=== PATIENT | female | born 1985 | race Caucasian/White ===

== ENCOUNTER → 2017-11-12 10:32 | Outpatient (CLI) | payer OTHER, MEDICAID, SELFPAY ==
[2017-11-12 11:27] LABS: Glucose 98 mg/dL (70-100)
[2017-11-12 11:29] LABS: Add Manual Diff / Slide Review NO; Basophils Percent Auto 0.6 % (0-2); Eosinophils Percent Auto 2.7 % (2-4); Hematocrit 40.5 % (36-46); Hemoglobin 13.6 g/dL (12.0-16.0); Lymphocytes Percent Auto 29.9 % (25-40); Mean Corpuscular HGB Conc 33.5 % (30-36); Mean Corpuscular Hemoglobin 28.6 PG (26-34); Mean Corpuscular Volume 85.6 fL (80-100); Monocytes Percent Auto 11.4 % (3-14); Neutrophils Absolute Auto 3100 /uL (3000-5900); Neutrophils Percent Auto 55.4 % (50-75); Platelet Count 213 X10^3/uL (150-400); Red Blood Cell Count 4.73 X10^6/uL (4.0-5.2); Red Cell Distribution Width 13.6 % (11.6-14.8); White Blood Cell Count 5.6 X10^3/uL (4.5-11.0)
[2017-11-12 12:25] LABS: TSH w/ Reflex to FT4 2.37 uIU/mL (0.47-4.68)
== END ==
PROVIDERS: PCP Family Medicine; Visit Provider Family Medicine
DX: R53.82 Chronic fatigue, unspecified (principal); E66.9 Obesity, unspecified
CPT/HCPCS: 36415; 82947; 84443; 85025

== ENCOUNTER → 2017-12-08 14:07 | Outpatient (CLI) | payer OTHER, MEDICAID, SELFPAY | PROVIDERS: PCP Family Medicine; Visit Provider Nurse Practitioner Family | DX: J02.9 Acute pharyngitis, unspecified (principal); J35.1 Hypertrophy of tonsils | CPT/HCPCS: 87070 ==

== ENCOUNTER → 2017-12-08 14:25 | Outpatient (CLI) | payer OTHER, MEDICAID, SELFPAY ==
[2017-12-10 14:09] LABS: EBV Virus IgM Ab < 36.00 U/mL (< 36.00)
== END ==
PROVIDERS: PCP Family Medicine; Visit Provider Nurse Practitioner Family
DX: J02.9 Acute pharyngitis, unspecified (principal)
CPT/HCPCS: 36415; 86663; 86664; 86665; 87070; 87077

== ENCOUNTER → 2018-01-05 11:17 | Outpatient (CLI) | payer OTHER, MEDICAID, SELFPAY ==
--- NOTE | 2018-01-05 11:18 | DI.US.S_ITS ---
PROCEDURE: US PELVIC COMPLETE INDICATIONS: DYSMENORRHEA TECHNIQUE: Real-time scanning was performed of the pelvic organs, with image documentation. Additional endovaginal scanning was necessary due to incomplete visualization of the adnexal and endometrial structures by transabdominal scanning. COMPARISON: None. FINDINGS: Transabdominal scanning: Limited scanning through the kidneys shows no hydronephrosis. No pathologic free abdominal or pelvic fluid. Endovaginal scanning: Uterus: Uterus is normal in size at 5.1 x 5.3 x 1.1 cm, anteverted. The endometrium measures 9.0 mm in combined thickness. Ovaries: The right ovary measures 2.9 x 2.7 x 3.9 cm and contains a mildly complex cyst containing internal low level echoes raising up to 1.6 x 1.5 x 1.0 cm but no internal or abnormal marginal vascularity is associated. The left ovary measures 3.1 x 2.4 x 1.9 cm and contains a single 1.4 cm follicle. IMPRESSION: Normal appearing anteverted uterus, small 1.6 cm mildly complex right ovarian cyst containing low-level internal echoes. Simple follicular cyst on the left measures 1.4 cm. No adjacent abnormal mass or free fluid is seen. Dictated by: Wade Madsen M.D. on 01/05/2018 at 12:36 Approved by: Wade Madsen M.D. on 01/05/2018 at 12:38
== END ==
PROVIDERS: PCP Family Medicine; Visit Provider Physician Assistant
DX: N94.6 Dysmenorrhea, unspecified (principal); N83.02 Follicular cyst of left ovary; N83.291 Other ovarian cyst, right side
CPT/HCPCS: 76830; 76856

== ENCOUNTER → 2022-11-20 16:20 | Outpatient (CLI) | payer OTHER, MEDICAID, SELFPAY ==
[2022-11-20 17:31] LABS: Hemoglobin A1C% w Est Avg Glu 5.3 % (4.0-6.0)
[2022-11-20 18:04] LABS: TSH w/ Reflex to FT4 2.85 uIU/mL (0.47-4.68)
== END ==
PROVIDERS: PCP Family Medicine; Referring Provider Family Medicine; Visit Provider Family Medicine
DX: E66.9 Obesity, unspecified (principal)
CPT/HCPCS: 36415; 83036; 84443

== ENCOUNTER → 2023-04-03 10:39 | Outpatient (CLI) | payer OTHER, MEDICAID, SELFPAY ==
[2023-04-03 11:27] LABS: Influenza A - CEPHEID Flu A NEGATIVE (NEGATIVE); Influenza B - CEPHEID Flu B NEGATIVE (NEGATIVE); Respiratory Syncytial Virus Negative (Negative)
[2023-04-03 13:09] LABS: COVID-19 CEPHEID 4-PLEX PCR Negative (Negative)
== END ==
PROVIDERS: PCP Family Medicine; Visit Provider Physician Assistant
DX: R05.1 Acute cough (principal)
CPT/HCPCS: 0241U; 87880

== ENCOUNTER → 2023-11-28 09:52 | Outpatient (CLI) | payer OTHER, SELFPAY ==
[2023-11-28 12:36] LABS: Add Manual Diff / Slide Review NO; Basophils Absolute Auto 0 /uL (0-100); Basophils Percent Auto 0.3 % (0-2); Eosinophils Absolute Auto 100 /uL (0-450); Eosinophils Percent Auto 1.8 % (2-4); Hematocrit 38.6 % (36-46); Hemoglobin 12.9 g/dL (12.0-16.0); Lymphocytes Absolute Auto 1800 /uL (1100-4500); Lymphocytes Percent Auto 22.7 % (25-40); Mean Corpuscular HGB Conc 33.4 % (30-36); Mean Corpuscular Hemoglobin 28.3 PG (26-34); Mean Corpuscular Volume 84.8 fL (80-100); Monocytes Absolute Auto 700 /uL (0-900); Monocytes Percent Auto 8.5 % (3-14); Neutrophils Absolute Auto 5200 /uL (1500-7000); Neutrophils Percent Auto 66.7 % (50-75); Platelet Count 266 X10^3/uL (150-400); Red Blood Cell Count 4.56 X10^6/uL (4.0-5.2); Red Cell Distribution Width 14.7 % (11.6-14.8); White Blood Cell Count 7.7 X10^3/uL (4.5-11.0)
[2023-11-28 13:13] LABS: Alanine Aminotransferase 23 IU/L (<35); Albumin 4.2 g/dL (3.5-5.0); Albumin Globulin Ratio 1.2 (1.0-2.8); Alkaline Phosphatase 65 U/L (38-126); Aspartate Aminotransferase 23 IU/L (14-36); BUN Creatinine Ratio 12.1 (6-22); Bilirubin Total 0.5 mg/dL (0.2-1.3); Blood Urea Nitrogen 12 mg/dL (7-17); Calcium 9.5 mg/dL (8.4-10.2); Carbon Dioxide 23 mmol/L (22-32); Chloride 104 mmol/L (98-107); Cholesterol 199 mg/dL (140-199); Estimated Glomerular Filt Rate > 60 mL/min (>60); Globulin 3.6 g/dL (1.7-4.1); Glucose 101 mg/dL (70-100); HDL Cholesterol 36 mg/dL (40-60); HEMOLYSIS < 15 (0-50); LDL Cholesterol Calculated 144 mg/dL (<100); Potassium 3.9 mmol/L (3.4-5.1); Sodium 136 mmol/L (137-145); Total Protein 7.8 g/dL (6.3-8.2); Triglycerides 93 mg/dL (35-150)
[2023-11-28 16:03] LABS: Thyroid Stimulating Hormone 2.75 uIU/mL (0.47-4.68)
[2023-11-28 16:10] LABS: Hemoglobin A1C% w Est Avg Glu 5.7 % (4.0-6.0)
[2023-11-29 08:39] LABS: Insulin Level Total 36.4 uIU/mL (2.6-24.9)
== END ==
PROVIDERS: PCP Family Medicine; Referring Provider Family Medicine; Visit Provider Family Medicine
DX: E66.9 Obesity, unspecified (principal)
CPT/HCPCS: 36415; 80053; 80061; 83036; 83525; 84402; 84403; 84443; 85025

== ENCOUNTER → 2023-12-24 08:05 | Outpatient (CLI) | payer OTHER, SELFPAY ==
--- NOTE | 2023-12-24 08:07 | DI.US.S_ITS ---
PROCEDURE: US PELVIC COMPLETE INDICATIONS: f/u ovaian cyst TECHNIQUE: Real-time scanning was performed of the pelvic organs, with image documentation. Additional endovaginal scanning was necessary due to incomplete visualization of the adnexal and endometrial structures by transabdominal scanning. COMPARISON: Outside Facility, US, US PELVIC COMPLETE, 11/07/2023, 18:16. FINDINGS: Uterus: Uterus is anteverted and normal in size at 12.0 x 5.9 x 6.9 cm. The myometrium is homogeneous. The endometrium measures 11.2 mm combined thickness. Ovaries: The right ovary measures 4.6 x 2.4 x 2.5 cm, with a calculated ovarian volume of 14.2 cc. The left ovary measures 1.5 x 2.0 x 2.2 cm, with a calculated ovarian volume of 3.5 cc. Adjacent to the right ovary is a cystic lesion with low-level internal echoes measuring 5.7 x 2.8 x 4.8 centimeters, previously 5.0 x 2.8 x 3.2. Less than 12 follicles can be seen in each ovary. No adnexal masses are seen. Other: No pathologic free abdominal or pelvic fluid. IMPRESSION: Cystic structure with low-level internal echoes adjacent to the right ovary appears mildly increased in size compared to prior. Findings may represent endometrioma given persistence and clinical correlation is recommended. We strive to produce accurate, complete, and clear reports of imaging services. To assist us in improving patient care, this report was composed using standard report templates and voice recognition software. Therefore, it may contain abnormal punctuation, insertions and/or omissions. Occasional wrong-word or sound-alike substitutions may occur. Though we review the report and make efforts to correct it, we do recommend that the report be read carefully in proper context to recognize any text inaccuracies. Dictated by: José Miguel Marquez M.D. on 12/24/2023 at 16:50 Approved by: José Miguel Marquez M.D. on 12/24/2023 at 16:52
== END ==
PROVIDERS: PCP Family Medicine; Referring Provider Family Medicine; Visit Provider Family Medicine
DX: N83.209 Unspecified ovarian cyst, unspecified side (principal)
CPT/HCPCS: 76856

== ENCOUNTER → 2024-01-16 14:31 | Outpatient (CLI) | payer OTHER, SELFPAY ==
[2024-01-16 16:28] LABS: Cancer Antigen 125 20.5 U/mL (0-35)
== END ==
PROVIDERS: PCP Family Medicine; Referring Provider Family Medicine; Visit Provider Family Medicine
DX: N83.209 Unspecified ovarian cyst, unspecified side (principal)
CPT/HCPCS: 36415; 86304

== ENCOUNTER 2024-04-26 06:30 | Day surgery (SDC) | payer OTHER, SELFPAY ==
[2024-03-16 14:22] VITALS: BMI 48.5
[2024-04-26] VITALS (9 sets, daily range): BP systolic 104–127; BP diastolic 66–84; PULSE 68–107; RESP 11–17; TEMP 36.1–37.2; O2SAT 93–99; BMI 48.4
--- NOTE | 2024-04-26 | PATH_ITS ---
[facility] Accession Number: [id number] No. of containers..01 Tissue . 01 Material submitted: . fallopian tube - BILATERAL FALLOPIAN TUBES, RIGHT OVARIAN CYST . 01 Diagnosis: BILATERAL FALLOPIAN TUBES AND RIGHT OVARIAN CYST, BILATERAL SALPINGECTOMY AND RIGHT OVARIAN CYSTECTOMY: Endometriotic cyst and bilateral fimbriated fallopian tubes with focal superficial involvement by endometriosis. Negative for malignancy. MRV 04/28/2024 1601 Local . 01 Electronically signed: . Carlee Cabrera DO, Pathologist NPI- [id number] . 01 Gross description: . Received in formalin with two patient identifiers and bilateral fallopian tubes, right ovarian cyst, are two unoriented, fimbriated fallopian tubes, 5.5 x 1.2 cm and 4.3 x 1.0 cm, as well as multiple fragments of membranous tissue consistent with fragmented cyst aggregating to 5.4 x 5.2 x 1.3 cm. . Both tubes have violaceous, smooth serosa with cysts up to 0.4 cm in greatest dimension filled with cloudy serous fluid. The lumen are stellate and unremarkable. . The fragments of cysts are thin and translucent with no distinct areas of thickening or excrescences identified. No normal ovarian parenchyma is identified. . Craft Manager sections are submitted as follows: A1: Longer fallopian tube to include one-half of bisected fimbriae and cross sections. A2: Sharon fallopian tube to include one-half of bisected fimbriae and cross sections. A3-A7: Cyst. ([id number]) /MRV 04/27/2024 1642 Local . 01 Pathologist provided ICD-10: N80.129 . 01 CPT . 001110 Specimen Comment: A courtesy copy of this report has been sent to [facility] Pathology Performed at: [address] [address] [address] [address], [place], [place] [id number] MD Ky Bryant MD Phone: [phone]
--- NOTE | 2024-04-26 07:11 | PM.GYNHP.1 ---
History of Present Illness History of Present Illness Narrative: Cee Herzog is a 38 year old female who presents for scheduled procedure in setting of known ROV neoplasm consistent with dermoid, chronic AUB, NICOLAS, stage 2 POP. Patient last seen in office for preoperative counseling 03/02/24, denies significant interval changes in personal or family history and affirms desire to proceed today with procedure as scheduled [facility] Medical History (Updated 03/02/24 @ 11:18 by Deidra Calixto MD) Abnormal uterine bleeding (AUB) Mixed stress and urge urinary incontinence Vision disorder Rosacea (~2000) Eczema Acne Carpal tunnel syndrome (~2009) Ankle pain (~2000) Chicken pox (~1990) Family History Father Hypertension Stroke Mother Diabetes mellitus Rheumatoid arthritis Sleep apnea Family history of thyroid problem Sister Family history of thyroid problem Sister Family history of thyroid problem Grandfather Diabetes mellitus Hyperlipidemia Grandmother Stomach cancer Lung cancer Grandfather Stroke Prostate cancer Grandmother Skin cancer Hypertension Social History marital status: number of children: 4 household members: family and children lives independently: Yes caregiver/support person: No housing: house occupational status: unemployed Smoking Status: Never smoker alcohol intake: never substance use type: does not use Meds Home Medications and Allergies Home Medications Medication Instructions Recorded Confirmed Type fluticasone propionate 50 1 spray intranasal DAILY #16 grams 04/03/23 04/26/24 Rx mcg/actuation nasal spray,suspension (Flonase Allergy Relief) Allergies Allergy/AdvReac Type Severity Reaction Status Date / Time No Known Drug Allergies Allergy Verified 04/26/24 06:45 Review of Systems Review of Systems ROS: Yes All systems reviewed with the patient and are negative except as otherwise documented Exam Const General: cooperative and comfortable Nutritional Appearance: obese Orientation: alert, awake and oriented x3 Limitations: mental status not altered Resp Effort & Inspection: normal respiratory effort and able to speak in complete sentences GI Inspection: large pannus Extrem General: normal to inspection Psych Mental Status: mental status grossly normal Judgment: judgment good Assessment & Plan Assessment and plan (1) Abnormal uterine bleeding (AUB): Status: Acute (2) Mixed stress and urge urinary incontinence: Status: Acute (3) Cyst of ovary: Problem details: Right side 5.7 x 2.8 x 4.8 likely endometrioma Qualifiers: Laterality: right Qualified Code(s): N83.201 - Unspecified ovarian cyst, right side Status: Acute Plan 38yo presents for scheduled procedure, definitive surgical management of acute on chronic AUB, known ROV neoplasm, chronic NICOLAS, stage 2 POP. Patient affirms understanding that hysterectomy portion of the case will only be performed if there are no intraoperative safety concerns for completion. She verbalized understanding that the laparoscopic portion of the procedure may be unsuccessful if there is difficulty with ventilation in setting of advanced BMI with higher likelihood of conversion to open procedure. Patient verbalized understanding of increased risk of urinary retention with placement of mid-urethral sling, planned overnight admission to facility for observation pending extent of procedure performed. dispo: to OR Time-Based Coding :: [TOTAL MINUTES] spent with patient and on the chart (including review of chart, obtaining history, exam, reviewing outside data, placing orders, documenting exam and treatment plan, and counseling patient) on [DATE].
[2024-04-26] MEDS: SCOPOLAMINE 1 PATCH TOP (07:12)
[2024-04-26] MEDS: LACTATED RINGERS 1,000 ML 42 ML IV ×2 (07:12→08:41)
[2024-04-26] MEDS: ACETAMINOPHEN 325 MG TABLET 975 MG PO (07:15)
--- NOTE | 2024-04-26 07:15 | PM.PREOP ---
Pre-operative Note Interval Note History & Physical reviewed/Exam performed by Physician: Yes Changes to H&P: No H&P completed within 30 days and has changed as indicated here:: 04/26/24 ASA Class (for procedural sedation): III
[2024-04-26 07:45] LABS: Add Manual Diff / Slide Review NO; Basophils Absolute Auto 100 /uL (0-100); Basophils Percent Auto 0.8 % (0-2); Eosinophils Absolute Auto 200 /uL (0-450); Eosinophils Percent Auto 3.1 % (2-4); Hematocrit 35.9 % (36-46); Lymphocytes Absolute Auto 2000 /uL (1100-4500); Lymphocytes Percent Auto 25.8 % (25-40); Mean Corpuscular HGB Conc 33.4 % (30-36); Mean Corpuscular Hemoglobin 27.9 PG (26-34); Mean Corpuscular Volume 83.4 fL (80-100); Monocytes Absolute Auto 600 /uL (0-900); Monocytes Percent Auto 7.1 % (3-14); Neutrophils Absolute Auto 5000 /uL (1500-7000); Neutrophils Percent Auto 63.2 % (50-75); Platelet Count 231 X10^3/uL (150-400); Red Blood Cell Count 4.31 X10^6/uL (4.0-5.2); Red Cell Distribution Width 14.3 % (11.6-14.8); White Blood Cell Count 7.8 X10^3/uL (4.5-11.0)
[2024-04-26] MEDS: CEFAZOLIN VIAL 3 GM in SODIUM CHLORIDE 0.9% 100 ML IV (08:00)
--- NOTE | 2024-04-26 08:47 | SUR.OPER ---
Lithotomy on padded OR bed. [place] Pad Positioner under torso. Head on pillow, arms padded and tucked at sides. Legs secured in padded yellow fins stirrups.
[2024-04-26] MEDS: BUPIVACAINE 0.5% W/ EPI (PF) 30 ML VIAL INJ (08:57)
[2024-04-26] MEDS: BUPIVACAINE 0.25% W/ EPI 30 ML VIAL INJ (08:59)
--- NOTE | 2024-04-26 09:45 | PM.OP.1 ---
Operative Date/Time/Diagnoses Date of procedure: 04/26/24 Time of procedure: 07:45 Pre-op diagnosis: ROV neoplasm, AUB, NICOLAS Post-op diagnosis: same Procedure & Clinicians Procedure: diagnostic laparoscopy, R ovarian cystectomy, bilateral salpingectomy Same procedure as scheduled: No (planned laparoscopic hysterectomy, A/P repair and MUS with TVT omitted ) Indications: chronic symptomatic ROV cyst, AUB, NICOLAS Surgeon: Deidra Calixto Fishing Game Warden: Mora Nagel Click Yes if Unassisted: No Anesthesia Type: General Operative Notes Findings: normal external female genitalia, perineum and anus without rash or lesion severe broad based posterior vaginal wall defect minimal anterior wall defect, moderate urethral hypermobility noted marked palpable intra-abdominal pressure on anterior vaginal wall in lithotomy/under general anesthesia, 2 provider decision to not proceed with pelvic repair as scheduled due to increased risk of failed procedure in setting of advanced BMI/patient habitus diagnostic laparoscopy with limited visualization secondary to pt intolerance to bariatric abdominal insufflation pressure, grossly normal appearing liver edge/gall bladder/appendix. Enlarged/dilated R ovarian cyst with hemorrhagic contents, normal appearing ovarian stroma. L fallopian tube and ovary grossly wnl. Reactive adhesions of enlarged hemorrhagic cyst to large bowel, bluntly dissected Closure Type: primary Specimen(s): other (bilateral fallopian tubes, R ovarian cyst ) Estimated Blood Loss (mL): 10 Blood products transfused: none Procedure in detail: The patient was taken to the operating room, placed on the operating table in the supine position and intubated with ETT.? The patient was then placed in the lithotomy position with her legs in Moris stirrups.? The patient was then examined under anesthesia with the above findings, then prepped and draped in a sterile fashion.? A samaniego catheter was placed.? Time out was performed. A sterile speculum was inserted into the vagina.? The anterior cervix was grasped with single tooth tenaculum and under gentle traction the uterus sounded to 8cm. The cervical os was serially dilated to 17f using Carlo dilators. The medium VCare manipulator was placed in the standard fashion and the balloon was inflated.? Attention was then turned to the abdominal portion of the case. A 5mm incision was made infraumbilically and abdominal entry was achieved under direct visualization using the 5mm extended length VisaPort trocar.? Abdomen was insufflated to 20mmHg.? Two lateral 5-mm ports were placed in a similar manner under direct visualization.? The patient was placed in steep trendelenburg and the uterus was anteverted and abdominal survey was noted with findings as noted above. Surgeons notified by anesthesia at that time of increased difficulty with ventilation; patient was returned to supine position and pneumoperitoneum was decreased from bariatric pressure to standard pressure setting 13-15mmHg. With confirmed adequate ventilation per anesthesia without concern for patient safety the patient was replaced in modified trendelenburg position. Visualization of gynecologic anatomy was still suboptimal secondary to patient habitus and decision made to omit laparoscopic hysterectomy portion of case due to increased risk of iatrogenic injury. The Powerseal was used to dissect bilateral fallopian tubes away from the mesosalpinx.? Both fallopian tubes were amputated at the level of cornua and removed via the lateral 5mm trocar under direct visualization. The R ovarian cyst ruptured spontaneous with manipulation. Hemorrhagic contents were evacuated using the suction grain merchandising manager under direct visualization. The R ovarian cyst was sharply dissected away from the underlying normal ovarian stroma. The cyst wall was grasped using the atraumatic grasper and removed via the lateral trocar under direct visualization.? The abdomen was irrigated and all fluid was suction evacuated under direct visualization. All wound beds were visualized once more and noted to be hemostatic. The lateral trocars were removed under direct visualization. Pneumoperitoneum was released and the infraumbilical trocar was removed. The skin of all incisions was closed using 4-0 monocryl in a subcuticular fashion followed by application of dermabond. Attention was then returned to vaginal portion of the case. Given profundity of intra-abdominal pressure secondary to patient habitus, significant provider concern for failed incontinence procedure. Two provider decision (Shona, Durga) to omit pelvic repair portion of case due to increased risk of post-surgical failure with need for re-operation. All instruments were removed from the vagina and the samaniego was discontinued. All counts correct x2. The patient was awoken from anesthesia, extubated and taken to PACU in stable conditions. Complications: other (pelvic floor repair portion of scheduled procedure omitted, 2 provider decision ) Post-operative Condition: stable Disposition: PACU Plan for aftercare: dc to home pending clinical course, routine f/u in office, planned future referral to urogynecology
[2024-04-26] MEDS: OXYCODONE IR 5 MG TABLET PO (10:24)
[2024-04-26] MEDS: hydrOXYzine 50 MG/ML INJ 25 MG IM (10:25)
[2024-04-26] MEDS: ONDANSETRON 4 MG/2 ML INJ IV (10:42)
--- NOTE | 2024-04-26 12:05 | SUR.PHASEII ---
Patient urinated 100ml urine into hat and ambulated to restroom and back to bed without difficulty. Pt with some nausea now subsided after zofran administration and gingerale to drink
== END 2024-04-26 12:06 | disposition home or self-care (01) ==
LOC: OR 06:32 → AC 06:35
PROVIDERS: PCP Family Medicine; Referring Provider Obstetrics & Gynecology; Visit Provider Obstetrics & Gynecology
PROC: 0UT9FZZ Resection of Uterus, Via Natural or Artificial Opening With Percutaneous Endoscopic Assistance (ICD-10-PCS; CPT 58662; principal; 2024-04-26 07:45)
DX: N80.213 Superficial endometriosis of bilateral fallopian tubes (principal); N93.9 Abnormal uterine and vaginal bleeding, unspecified; N39.46 Mixed incontinence; N83.201 Unspecified ovarian cyst, right side; E66.9 Obesity, unspecified; Z68.42 Body mass index [BMI] 45.0-49.9, adult
CPT/HCPCS: 58662; 58661; 36415; 82962; 85025; 86850; 86900; 86901; J0330; J0690; J1100; J1171; J1885; J2250; J2405; J2704; J3010; J3410; J3490

== ENCOUNTER → 2024-05-27 14:20 | Outpatient (CLI) | payer OTHER, SELFPAY ==
[2024-05-27 20:08] LABS: Appearance Urine UA CLEAR; Bilirubin Urine UA NEGATIVE (NEGATIVE); Color Urine UA YELLOW; Glucose Urine UA NEGATIVE (Negative); Ketones Urine UA TRACE (NEGATIVE); Leukocyte Esterase Urine UA NEGATIVE (NEGATIVE); Nitrite Urine UA NEGATIVE (Negative); Occult Blood Urine UA NEGATIVE (Negative); Protein Urine UA NEGATIVE (Negative); Specific Gravity Urine UA >=1.030 (1.000-1.035); Urobilinogen Urine UA 0.2 E.U./dL (0.2)
[2024-05-27 20:17] LABS: pH Urine UA 5.5 (4.5-8.0)
[2024-05-27 20:33] LABS: Amorphous Sediment Urine 4+; Bacteria Urine Few (2-10); Culture Indicated Urine Cult Not Indicated; RBC Urine None Seen (0-5/HPF); Squamous Epithelial Cell Urine 0-1 /HPF (0-5/HPF); Urine Volume Low Vol <10mL (spun); WBC Urine None Seen (0-5/HPF)
== END ==
PROVIDERS: PCP Family Medicine; Visit Provider Obstetrics & Gynecology Gynecology
DX: N39.46 Mixed incontinence (principal)
CPT/HCPCS: 81001

== ENCOUNTER 2024-08-30 12:00 | Day surgery (SDC) | payer OTHER, SELFPAY ==
--- NOTE | 2024-08-03 09:36 | P.HPOB_ITS ---
History of Present Illness History of Present Illness Narrative: Cee Herzog is a 39 year old female admitted for surgery for POP and NICOLAS. Date of procedure:?? August 30, 2024 Preoperative diagnosis:? cystocele rectocele NICOLAS urge UI / Detrusor instability BMI 47 Planned Procedure:?? cysto / A&P / sling / cysto Of note, 1. start with cystoscopy, to make sure her anatomy is normal, given difficulty placing the UDS catheter. 2. do the sling and Ant repair via combined incision and combined dissection. 3. she specifically wants a not too tight rectocele repair, as she reports her spouse is quite large. Does not want the introitus narrowed anymore than is necessary to accomplish the rectocele repair Pain management plan as Tylenol 1000 mg t.i.d., Motrin 400 mg t.i.d., oxycodone 5 mg, 1 pill every 4 hours as needed, 15 pills ordered, colace For the urge incontinence, we will start treatment now with oxybutynin XL 10 mg a day. Take through surgery on August 30. Then stop at surgery for 2-3 weeks. After 2-3 weeks from surgery, restart the oxybutynin. At the 6 week visit, assess again. CC: Urinary incontinence HPI:??38-year-old female who presents for evaluation of above complaint.?? She reports onset of symptoms years ago.?? She considers this a? Moderate? problem. She reports severe urinary stress incontinence with cough sneeze and sudden movements. Her condition is variable. Sometimes she has minimal symptoms as little as 0 per day, typical is 4 times a week, for which she uses a maxi pad. But whenever she gets an upper respiratory infection, she has severe incontinence, requiring the use of a diaper. Her stress incontinence triggers include sneeze cough laugh strain exercise walking. She also has urgency incontinence. She describes that she leaks when she sits down to void. She has done Kegel's. She has not had surgery. No medications. She also has obesity, 275 lb, 5 ft 3.7 in, BMI 47.6 The significance of the obesity is related to a recent surgery on April 26, 2024. There was a plan for a laparoscopic hysterectomy, anterior and posterior repair, mid urethral sling. However, per the op note, there was significant difficulty with ventilation of the patient while in Trendelenburg position. Likely partly related to the obesity. Ultimately decision was made to do a right ovarian cystectomy to remove an endometrioma and to do a bilateral salpingectomy. The hysterectomy was aborted as was the prolapse repair, as was the sling. Her weight is currently unchanged. She desires to have the surgery for the stress incontinence and the prolapse. We will not plan to do the laparoscopic hysterectomy based on the fact that she did not tolerate laparoscopic insufflation. She reports similar difficulties when she was in the 3rd trimester with breathing difficulties. So the safer course of action will be for vaginal surgery with a sling and a cystocele repair and rectocele repair. The hysterectomy was planned due to heavy menstrual bleeding. However she reports that she can tolerate her menses. She has periods that occur monthly, last 7 days, heavy for 3-5 days[address] that way for years, we also discussed using a progesterone coated IUD, or doing endometrial ablation to treat her heavy periods, she declines both for now. She does not have significant prolapse symptoms. No bulge seen. Exam does d emonstrate stage II cystocele, stage II rectocele, significantly enlarged genital hiatus. Normally I would recommend observation since the symptoms are low. However, due to her significant urinary incontinence symptoms, and the plan to place a mid urethral sling, the outcome will be much improved by repairing the cystocele at the time of the sling. So she wants to do the cystocele repair. Since we are doing the sling and the cystocele repair, she would also like to have the rectocele repair now. She mentions that her current spouse is 6 ft 5 in tall and does not want the rectocele repair to be too tight for sexual function. She will let me know at the next visit regarding how much smaller she wants the the genital hiatus to be, after surgery. Denies hematuria, bladder infections, tobacco use. Does have a history of renal stone 2 times. One remote, 1 in the last couple of years. prior hyst -??? 0 ? -? 4 c-sec? -?? 0 ? Pelvic Floor Review of Systems: (HPI) ?Stress urinary incontinence (NICOLAS):??0 to many per day ? Urge Incontinence (Urge UI):??0-2 per day ? She wears 1-2 maxi pads or diapers pads a day. OAB sx:? Frequency:?? q 2-3 hours, Nocturia:??2-3 times Urgency:??Moderate Prior incontinence treatment includes:? Medical:? no ? Surgical:??No ? Kegels:??Yes ? Physical therapy:??No Pessary:??No Diet / Fluids: ? Fluid restriction:??No ? Excessive fluids:??No Pain symptoms:? Painful bladder:??No ? Dysuria:??No ? Dyspareunia:??No ? Dysmenorrhea:? No UTI?s, recurrent:? No Hematuria:? No Kidney Stones:??Yes Tobacco use:? No ? Pelvic Organ Prolapse (POP) symptoms:? Bulge:?No? Pressure and /or? Heaviness:?No? Splint for defecation or voiding:? No? Voiding dysfunction: ? Abnormal stream:? No ? Strain to void:??She has to lean forward or partly stand up in order to void completely ? Incomplete emptying:??Sometime ? Voiding difficulty:??Yes ? Retention:??No Bowel Function: ? Constipation:??No ? Strain to defecate:??No ? Fiber:??No ? Laxatives:??No Fecal Incontinence:? Liquid stool:??No ? Solid stool:??No Sexually active:??Yes? Incontinence with sex:??Yes UroGyn ROS ROS Narrative ROS Narrative: Constitutional, CV, Endo, Musc-skel, Eyes, Cancer, Skin, Breast, GI, Heme/Lymph, Psych, Urinary, Neuro, Dealer Analyst, Resp, Sexual:??? Pertinent positives listed above, all other systems reviewed and negative. ? All reviewed on patient questionnaire.? [facility] Medical History (Updated 05/27/24 @ 19:58 by Zhang Crain MD) Rectocele Cystocele, midline Urge incontinence Stress incontinence, female Abnormal uterine bleeding (AUB) Mixed stress and urge urinary incontinence Vision disorder Rosacea (~2000) Eczema Acne Carpal tunnel syndrome (~2009) Ankle pain (~2000) Chicken pox (~1990) Family History Father Hypertension StrokeMother Diabetes mellitus Rheumatoid arthritis Sleep apnea Family history of thyroid problemSister Family history of thyroid problemSister Family history of thyroid problemGrandfather Diabetes mellitus HyperlipidemiaGrandmother Stomach cancer Lung cancerGrandfather Stroke Prostate cancerGrandmother Skin cancer Hypertension Social History marital status: number of children: 4 household members: family and children lives independently: Yes caregiver/support person: No housing: house occupational status: unemployed Tobacco & Substance Use Smoking Status: Never smoker alcohol intake: never substance use type: does not use Vitals Height 5 ft 3.75 in Weight 275 lb BMI 47.5 BP 130/84 Blood Pressure Location Lt brachial Position Sitting Pulse 72 Pulse Source Monitor Pulse Oximetry (%) 98 Oxygen Delivery Method room air UroGyn Exam UroGyn Exam UroGyn Exam Narrative: General: healthy, alert, coherent, no acute distress, cooperative, nontoxic Lungs: Breathing unlabored Abdomen: soft, no mass, non-distended, no hernia, non-tender Skin: Scars on Abd: Laparoscopy Vulva: Normal labia majora, labia minora, and clitoris, non-tender Gaping introitus, admits 3-4 fingers, obvious prior obstetric tear Urethra meatus: normal, no discharge Perineum: Normal, non-tender Urethra: No mass, non-tender Bladder: no mass, non-tender Vagina: No lesions, no discharge, atrophy, non-tender Stage II cystocele, stage II rectocele, good uterine support. Levators: Non-tender, Cervix: Normal No lesions, no discharge, non-tender Uterus: normal size, non-tender Bimanual: no mass, no adnexal mass, non-tender Anus: No lesion, non-tender, no hemorrhoid Empty Cough Stress test: Neg PVR: 10 mL by catheter Urethral angle hypermobile: + Pelvic Organ Prolapse: POP-Q Exam: Aa: 0 Ba: 0 Ap: -1 Bp: -1 C: -7 D: -10 TVL: 10.5 GH: 4.5 PB: 3 Introitus size: 3-4 fingerbreadths Cystocele stage: 2 Rectocele stage: 2 Uterine/Vault Prolapse Stage: 0-1 Office Procedures Informed consent given: Yes Residual: post void Complications: No Billing- Post Void Residual by Catheter: PVR Catheter - [id number] Assessment & Plan (1) Stress incontinence, female: Status: Acute (2) Urge incontinence: Status: Acute (3) Cystocele, midline: Status: Acute (4) Rectocele: Status: Acute Orders: Orders Urinalysis and Microscopic Today N39.46 - Mixed incontinence Time Spent Time Coding Minutes Spent: (must be on same date of service/appointment) Recommendations: ? Patient counseled regarding above conditions.? Educational materials given to patient. ? 1.???Stress Urinary Incontinence with urethral hypermobility :? This diagnosis was discussed with the patient. The etiology was explained. Treatment options were discussed including expectant management, pelvic floor exercises, pessary trial, and surgical intervention (mid-urethral sling, Simmons urethropexy, P-V sling, Mariya urethral plication, urethral bulking injection).? Risks and benefits of surgery were briefly outlined. Needs UDS next We discussed that she LIKELY is a candidate for a Midurethral Sling as treatment of her stress incontinence. Success rate of being dry from stress incontinence is about 80-85%; another 10-15% of patients are markedly improved but not cured;? 1-2% will fail, and 1-2% will need the sling cut because it is too tight.? The risk of temporary urinary retention requeiring temporary catheterization is about 15-20%; risk of urinary retention requiring sling release procedure is about 1-2%, as noted above.? We discussed the small 1-3% of mesh erosion as well as the small risk of de sunil urgency.? This procedure is not designed to treat Urge Incontinence symptoms; however, 30-50% of patients with overactive bladder/ urgency urinary incontinence will have improvement in these symptoms, in 30% these symptoms will stay the same, and in 20-30% these symptoms will worsen. 2. Pelvic Organ Prolapse - Stage 2, cystocele, rectocele.? This diagnosis and its etiology was discussed with the patient.? Treatment options were discussed including: expectant management, pessary trial, and surgical intervention. We briefly discussed risks and benefits of surgery. All surgery for prolapse is not 100% successful and there is a chance of recurrence or failure. She declines a Pessary Trial for Prolapse she desires surgery my recommendation = sling, A&P repair see AVS for counseling Follow-up:??? UDS, then OR 38 year-old female with stage II cystocele, stage II rectocele, stress incontinence and possible urge incontinence presents for urodynamics. exam showed cystocele at 0 cm, rectocele at -1 cm, 3-4 fingerbreadth introitus, GH 4.5 cm Of note, she specifically wants a not too tight repair, reports her spouse is quite large. She desires cystocele & rectocele repair. Does not want the introitus narrowed anymore than is minimally necessary to accomplish the rectocele repair For technical reasons, unable to do complex urodynamics. Therefore just simple cystometrogram and uroflow was done. We got all of the information related to volumes. But no information for pressure. This is adequate for her situation today Verbal consent obtained. Procedure explained in detail and all questions answered. She presented with a full bladder and was able to empty on the commode. She was able to void privately. Void 162 cc Voiding time 21 seconds pvr 10 cc Normal voiding time, normal average flow rate, normal max flow rate She was then moved from the commode to the exam table, placed in stirrups, urethra cleaned with Betadine. Sixteen Vietnamese Lynch catheter was inserted, balloon was not filled. Postvoid residual obtained, 10 cc Bladder was filled with sterile water through a 60 cc Tumi syringe attached to the Lynch catheter. 1st [id number] cc 1st urge60 cc Strong ppbb273 cc Rhirqbcy200 cc +MANAGER SHIFT Of note, in addition to the small capacity bladder, she had obvious detrusor instability, as the meniscus in the Pino syringe would spontaneously go up and down multiple times throughout the study Assessment + stress incontinence Normal voiding + detrusor overactivity Stage II cystocele Stage II rectocele Plan Surgery plan. cysto / A&P / sling / cysto First we will do a cystoscopy, due to some difficulties placing the catheter. Then we will do the anterior and posterior repair, and then the mid urethral sling, and a repeat cystoscopy Surgery date, We discussed surgery and recovery and pain management in detail. Pain management plan as Tylenol 1000 mg t.i.d., Motrin 400 mg t.i.d., oxycodone 5 mg, 1 pill every 4 hours as needed, 15 pills ordered, colace For the urge incontinence, we will start treatment now with oxybutynin XL 10 mg a day. Take today through surgery on August 30. Then stop at surgery for 2-3 weeks. After 2-3 weeks from surgery, restart the oxybutynin. At the 6 week visit we will assess everything again. [facility] Medical History (Updated 07/20/24 @ 18:14 by Zhang Crain MD) Detrusor instability Rectocele Cystocele, midline Urge incontinence Stress incontinence, female Abnormal uterine bleeding (AUB) Mixed stress and urge urinary incontinence Vision disorder Rosacea (~2000) Eczema Acne Carpal tunnel syndrome (~2009) Ankle pain (~2000) Chicken pox (~1990) Family History Father Hypertension Stroke Mother Diabetes mellitus Rheumatoid arthritis Sleep apnea Family history of thyroid problem Sister Family history of thyroid problem Sister Family history of thyroid problem Grandfather Diabetes mellitus Hyperlipidemia Grandmother Stomach cancer Lung cancer Grandfather Stroke Prostate cancer Grandmother Skin cancer Hypertension Social History marital status: number of children: 4 household members: family and children lives independently: Yes caregiver/support person: No housing: house occupational status: unemployed Smoking Status: Never smoker alcohol intake: never substance use type: does not use Meds Home Medications and Allergies Home Medications Medication Instructions Recorded Confirmed Type fluticasone propionate 50 1 spray intranasal DAILY #16 grams 04/03/23 07/21/24 Rx mcg/actuation nasal spray,suspension (Flonase Allergy Relief) acetaminophen 500 mg tablet 1,000 mg (2 x 500 mg) PO TID #30 07/20/24 07/21/24 Rx (Tylenol Extra Strength) tabs docusate sodium 100 mg capsule 100 mg PO BID #30 caps 07/20/24 07/21/24 Rx (Colace) ibuprofen 600 mg tablet 600 mg PO TID postop pain #30 tabs 07/20/24 07/21/24 Rx oxybutynin chloride 10 mg 10 mg PO DAILY #60 tabs 07/20/24 07/21/24 Rx tablet,extended release 24 hr oxycodone 5 mg tablet 5 mg PO Q8H PRN pain #15 tabs 07/20/24 07/21/24 Rx meloxicam 7.5 mg tablet 7.5 mg PO DAILY #30 tabs 07/21/24 07/21/24 Rx Allergies Allergy/AdvReac Type Severity Reaction Status Date / Time No Known Drug Allergies Allergy Verified 07/21/24 13:49 Assessment & Plan Assessment and plan (1) Cystocele, midline: Status: Acute (2) Rectocele: Status: Acute (3) Stress incontinence, female: Status: Acute (4) Urge incontinence: Status: Acute Plan Date of procedure:?? August 30, 2024 Preoperative diagnosis:? cystocele rectocele NICOLAS urge UI Planned Procedure:?? cysto / A&P / sling / cysto Patient counseled extensively about the Risks, Benefits, and Alternatives to surgery.? She was offered the opportunity to ask any questions, and all questions were answered. ? Surgical Risks include: Bleeding, Hemorrhage, Transfusion, Infection (especially wound or bladder), Injury to adjacent organs (especially bladder, ureter, bowel, blood vessels, nerves), Postop or Chronic Pain, need for Reoperation, and Life-threatening event (especially M.I., CVA, PE, DVT). Procedure Risks include: Failure to Cure condition, Recurrence of condition months or years later, Urinary incontinence, Voiding dysfunction or Urinary Retention with prolonged catheter use, Poor wound healing, Erosions of any mesh or graft used, Dyspareunia, Vaginal scarring or narrowing, Need for additional surgery (immediate or delayed).? The expected cure and improvement and failure rates were discussed. Patient counseled to avoid the following for 6 weeks after surgery: (1) Impact sports (like running or jumping), walking and stairs OK (2) Lifting over 20# (3) Sexual intercourse No limits after 6 weeks. ? Good exercise tolerance, > 4 Mets. Her current medications were reviewed, and instructions given over which to use and which to discontinue before surgery.? Post-operative care instructions reviewed.? We discussed post-operative pain: Pain should be in the mild-moderate range, but can be moderate-severe for the first few days.?? Prescriptions will typically be given for (1) acetaminophen (Tylenol) and (2) non-steroidal anti-inflammatory drug (NSAID, like Motrin or Naprosyn), use both together, around the clock. Prescription will also be given for a (3) narcotic pain medication. Use the narcotic as needed, as a booster to the Tylenol and NSAID. You might need 0-4 narcotic pills a day typically. The narcotic will only be needed for a few days.?? Gradually use less of the narcotic, but continue the Tylenol and NSAID.? After a few days, the narcotic should no longer be needed, and only the Tylenol and NSAID will be needed.? Warm packs or cold packs can also be used for pain.??Do not drive for as long as you are using the narcotic pain medication? - this should only be a few days.?? Constipation is associated with use of narcotic pain medications, and can be improved with use of a stool softener, or fiber, or a mild laxative.? All of her questions were answered and then the consent was signed at the end of the office visit.? Patient sent for labs and her preadmission appointment. Zhang Crain MD UroGynecology & Pelvic Reconstructive Surgery [place], [place] Time-Based Coding :: [TOTAL MINUTES] spent with patient and on the chart (including review of chart, obtaining history, exam, reviewing outside data, placing orders, documenting exam and treatment plan, and counseling patient) on [DATE].
[2024-08-30] VITALS (13 sets, daily range): BP systolic 115–151; BP diastolic 62–98; PULSE 74–93; RESP 13–20; TEMP 36.1–36.6; O2SAT 95–100; BMI 47.9
[2024-08-30] MEDS: SCOPOLAMINE 1 PATCH TOP (12:25)
[2024-08-30] MEDS: ACETAMINOPHEN 325 MG TABLET 975 MG PO (12:25)
[2024-08-30] MEDS: LACTATED RINGERS 1,000 ML 42 ML IV (12:25)
[2024-08-30] MEDS: CEFAZOLIN 2 GM/100 ML PREMIX 100 ML IV (13:17)
[2024-08-30] MEDS: LIDOCAINE 1% 20 ML INJ (13:50)
--- NOTE | 2024-08-30 13:55 | SUR.OPER ---
Lithotomy on padded OR bed. [place] Pad Positioner under torso. Padded seat belt from pack used over chest. Head on pillow, arms padded and secured on armboards. Legs secured in padded yellow fins stirrups. Position approved by surgeon and anesthesia.
--- NOTE | 2024-08-30 15:44 | PM.GYNOP.1 ---
Operative Date/Time/Diagnoses Date of procedure: 08/30/24 Time of procedure: 13:40 Pre-op diagnosis: Stress incontinence, cystocele Post-op diagnosis: same Procedure & Clinicians Procedure: Procedures Operation Date: 08/30/24 13:15 Actual Procedure Side Surgeon p Anterior/SLING Zhang Crain MD s Mid urethral sling Zhang Crain MD Operative Notes Findings: Operative Note Surgeon:? Zhang Crain MD [employer]ed [employer] Boards Stripper Etcher: Deidra Calixto MD Pre-Op Diagnosis: Stress incontinence, cystourethrocele, rectocele Post-Op Diagnosis:??Same Procedure: Mid urethral sling, anterior colporrhaphy, cystoscopy] Findings (brief): 1. Exam under anesthesia with stage II cystourethrocele and mild rectocele and severe urethral hypermobility 2. Cystourethrocele repair with site-specific defect repair of the anterior urethral and vesical fascia. 3 TVT sling placed at the mid urethra, tension-free. Cystoscopy with normal bladder, urethra, bilateral ureteral jets, no trocar injury 4. Rectocele was mild and decision made intraoperatively not to repair, as her main issues were the anterior vagina needing urethral support and repair of the cystocele and her preference to avoid sexual dysfunction from making the vagina too small given that her spouse is quite large. These were her concerns addressed preoperatively. It was determined that doing the rectocele repair would likely make the entire repair too tight for normal sexual function. The rectocele is mild and can be repaired later as needed. Date of Surgery:? August 30, 2024 Complications:? None Specimens:? None Anesthesia Technique: General endotracheal Estimated Blood Loss (mls):? 400 Blood Replacement (mls):? None Drains:? Lynch Condition:? Stable Procedure in detail: After consent was confirmed, the patient was taken to the operating room and placed under general anesthesia without incident.? Sequential compression devices were in place and active.? She received perioperative antibiotics.? She was then prepped and draped in the usual sterile fashion after placement in the dorsal lithotomy position using the Moris stirrups.? A Lynch catheter was placed.? With the Lynch catheter in place, the anterior vaginal mucosa beneath and lateral to the urethra, and up to the vaginal cuff,?was injected with 30 cc of? 0.5% lidocaine / epinephrine 1:200,000.? A 6-7 cm midline incision was made just below the external urethral meatus and extended to the cervix with a scapel. Metzenbaum scissors were used to dissect the vagina from the urethra and then create tunnels beneath the vaginal mucosa up toward the pubic bone on each side.? At the level of the bladder, the vaginal mucosa was dissected off of the underlying pubocervical fascia until the sidewalls were reached.? This completed the sling and cystocele dissections. Gel-Foam was placed into each sling tunnel to control hemostasis. This was removed later when the sling was placed an additional Gelfoam was placed after the sling was placed for hemostasis Next, the cystourethrocele repair was done, as the site specific defects in the urethra and bladder fascia were reconstructed with multiple interrupted 2-0 vicryl sutures, and then the fascia was plicated for additional support with sutures of 2-0 vicryl. Next, the sling was placed.? A marking pen was used to royer the skin just above the pubic bone and 2 cm from the midline bilaterally, and two small 8-10 mm incisions were made on the suprapubic skin.? The trocar was passed from the right vaginal tunnel, behind the pubic bone, to the right suprapubic incision, and this was repeated on the left side.? The Lynch catheter was removed, and cystoscopy was performed with a 70 degree lens. There was no trocar injury, and the bladder, ureters, and urethra were normal, with bilateral ureteral jets seen.? The Lynch catheter was reinserted.? The sling was pulled into position in a tension-free manner, and a Mariya clamp was easily passed between the sling and the urethra.? The plastic sheaths were removed to anchor the sling, and tension was checked again. The ends of the sling were trimmed just below the skin, and the skin incisions were cleaned and closed with dermabond. Excess anterior vaginal mucosa was trimmed,? and the vaginal mucosa incision was closed with 2 sutures of running 2-0 vicryl, one over the sling, and the other over the cystocele.? Sponge, needle and instrument count was correct.? The patient tolerated the procedure well and was taken to the recovery room in stable condition. Zhang Crain MD UroGynecology & Pelvic Reconstructive Surgery [place], [place]
[2024-08-30] MEDS: ONDANSETRON 4 MG/2 ML INJ IV (16:36)
[2024-08-30] MEDS: hydrOXYzine 50 MG/ML INJ 25 MG IM (16:37)
--- NOTE | 2024-08-30 17:05 | SUR.PHASEII ---
Voiding trial complete. 300 mL normal saline instilled in samaniego catheter without meeting resistance. F/c removed and patient transported to bathroom via wheelchair. Pt unable to void after 15 minutes. This RN spoke with Dr. Crain. Pt will go home with f/c and follow up in office to have it removed.
[2024-08-30] MEDS: OXYCODONE IR 5 MG TABLET PO (17:47)
--- NOTE | 2024-08-30 18:34 | SUR.PHASEII ---
Pt discharged with 2-way f/c in place. F/c education provided to patient with teach-back method and appropriate demonstration from pt. Instructed too call Dr. Crain office for f/u apt in 3 days to redo voiding trial.
== END 2024-08-30 18:35 | disposition home or self-care (01) ==
PROVIDERS: PCP Family Medicine; Referring Provider Obstetrics & Gynecology Gynecology; Visit Provider Obstetrics & Gynecology Gynecology
PROC: 0TSD0ZZ Reposition Urethra, Open Approach (ICD-10-PCS; 2024-08-30 13:15)
DX: N81.10 Cystocele, unspecified (principal); N39.3 Stress incontinence (female) (male); N36.41 Hypermobility of urethra; E66.9 Obesity, unspecified; Z68.42 Body mass index [BMI] 45.0-49.9, adult
CPT/HCPCS: 57288; 57240; 81025; C1771; J0330; J0690; J1100; J1885; J2250; J2405; J2704; J3010; J3410; J3490

== ENCOUNTER 2024-12-13 11:53 | Day surgery (SDC) | payer OTHER, SELFPAY ==
--- NOTE | 2024-12-02 16:43 | P.HPOB_ITS ---
History of Present Illness History of Present Illness Narrative: Cee Gary is a 39 year old female Date of procedure:?? December 13, 2024 Preoperative diagnosis:? Vaginal mesh erosion prior sling Stress incontinence Urge incontinence with detrusor instability Planned Procedure:?? Partial sling excision 1. She will have a new sling placed approximately 3 months after this surgery, to ensure that the tissue was heal before placing another sling 2. She has urge incontinence with detrusor instability. Had side effects with oxybutynin XL 10 mg a day with severe dry mouth. Switch to using oxybutynin 2.5 mg twice a day and had less dry mouth but some stomach cramping. Still with urge incontinence with almost every void. Nocturia times 1-2, daytime voids every 2 hours. So more of an urge incontinence issue than an overactive bladder issue. We will try another medication. We will order Detrol LA 2 mg once daily. She can take this for the next 10 days, up until 2 days before her surgery, to see what benefit it offers her Postop Meds Tylenol 1000 mg, ?3 times a day? Meloxicam 7.5 mg. She can take 1 or 2 of these pills daily as needed Oycodone 5 mg,? take 1 pill every 4-6 hr as needed, still has some from prior surgery. Doubt she will need more than 1 or 2 of these anyway Colace,? 1 pill BID, for constipation CC: vaginal sling mesh erosion HPI:??38-year-old female who presents for evaluation of above complaint.?? She reports onset of symptoms years ago.?? She considers this a? Moderate? problem. She reports severe urinary stress incontinence with cough sneeze and sudden movements. Her condition is variable. Sometimes she has minimal symptoms as little as 0 per day, typical is 4 times a week, for which she uses a maxi pad. But whenever she gets an upper respiratory infection, she has severe incontinence, requiring the use of a diaper. Her stress incontinence triggers include sneeze cough laugh strain exercise walking. She also has urgency incontinence. She describes that she leaks when she sits down to void. She has done Kegel's. She has not had surgery. No medications. She also has obesity, 275 lb, 5 ft 3.7 in, BMI 47.6 had surgery on August 30, 2024 Pre-Op Diagnosis: Stress incontinence, cystourethrocele, also urge UI and detrusor instability Post-Op Diagnosis:??Same Procedure: Mid urethral sling, anterior colporrhaphy, cystoscopy] at 6 wk postop, she reports: Overall her stress incontinence is markedly improved. Similarly her urge incontinence is improved quite a bit. Not using the oxybutynin 2.5 mg b.i.d. anymore. Current overactive bladder symptoms are in the normal range. Nocturia times 0-1 Day voids every 2-4 hours urge incontinence occurs in the morning when she wakes up onto the way the toilet sometimes, or if she holds it too long during the daytime. Reports vaginal odor On exam, surprisingly, there is a vaginal mesh erosion. It appears as if the vaginal incision split over the sling. She reports that she returned to work 2-4 weeks after surgery and has been working up to 60 hours a week, and lifting up to 40 lb. This may have played a role in the vaginal incision splitting and bleeding to the mesh erosion She denies any severe coughing.. She does have a BMI of 50.6 Pelvic Floor Review of Systems: (HPI) Bladder: ? No NICOLAS sx. ? occ urge UI sx ? Voiding well, no difficulty ? No UTI sx Bowel: ? No constipation, no diarrhea. Vagina: ? No vaginal bleeding. ? No POP sx. Diet / Fluids: ? Fluid restriction:??No ? Excessive fluids:??No Pain symptoms:? Painful bladder:??No ? Dysuria:??No ? Dyspareunia:??No ? Dysmenorrhea:? No UTI?s, recurrent:? No Hematuria:? No Kidney Stones:??Yes Tobacco use:? No ? Pelvic Organ Prolapse (POP) symptoms:? Bulge:?No? Pressure and /or? Heaviness:?No? Splint for defecation or voiding:? No? Voiding dysfunction: ? Abnormal stream:? No ? Strain to void:??She has to lean forward or partly stand up in order to void completely ? Incomplete emptying:??Sometime ? Voiding difficulty:??occ ? Retention:??No Bowel Function: ? Constipation:??No ? Strain to defecate:??No ? Fiber:??No ? Laxatives:??No Fecal Incontinence:? Liquid stool:??No ? Solid stool:??No Sexually active:??Yes? ROS Constitutinal, CV, Endo, Musc-skel, Eyes, Cancer, Skin, Breast, GI, Heme/Lymph, Psych, Urinary, Neuro, Condenser Cleaner, Resp, Sexual:??? Pertinent positives listed above, all other systems reviewed and negative. ? All reviewed on patient questionnaire.? PFSH Medical History Rectocele Cystocele, midline Urge incontinence Stress incontinence, female Abnormal uterine bleeding (AUB) Mixed stress and urge urinary incontinence Vision disorder Rosacea (~2000) Eczema Acne Carpal tunnel syndrome (~2009) Ankle pain (~2000) Chicken pox (~1990) Family History Father Hypertension StrokeMother Diabetes mellitus Rheumatoid arthritis Sleep apnea Family history of thyroid problemSister Family history of thyroid problemSister Family history of thyroid problemGrandfather Diabetes mellitus HyperlipidemiaGrandmother Stomach cancer Lung cancerGrandfather Stroke Prostate cancerGrandmother Skin cancer Hypertension Social History marital status: number of children: 4 household members: family and children lives independently: Yes caregiver/support person: No housing: house occupational status: unemployed Tobacco & Substance Use Smoking Status: Never smoker alcohol intake: never substance use type: does not use Vitals Height 5 ft 3.5 in Weight 288 lb BMI 50.2 BP 128/66 Blood Pressure Location Lt brachial Position Sitting Pulse 78 Pulse Source Monitor Pulse Oximetry (%) 98 Oxygen Delivery Method room air general: healthy, alert, coherent, no acute distress, cooperative, nontoxic Lungs: Breathing unlabored Abdomen: soft, no mass, non-distended, no hernia, non-tender Skin: Scars on Abd: Laparoscopy Vulva: Normal labia majora, labia minora, and clitoris, non-tender Gaping introitus, admits 3-4 fingers, obvious prior obstetric tear Urethra meatus: normal, no discharge Perineum: Normal, non-tender Urethra: No mass, non-tender Bladder: no mass, non-tender Vagina - There is a mesh erosion in the midline of the vagina. Approximately 1 x 2 cm. It looks as if the anterior midline incision split over the sling and retracted laterally on each side. Otherwise, the vagina is normal, NT, no mass, no abscess or hematoma ?no POP of the anterior vaginal wall Levators: Non-tender, Cervix: Normal No lesions, no discharge, non-tender Uterus: normal size, non-tender Bimanual: no mass, no adnexal mass, non-tender Anus: No lesion, non-tender, no hemorrhoid Empty Cough Stress test: Neg PVR: 10 mL by catheter Urethral angle hypermobile: + ? ASSESSMENT 1. Postop, recovered, no limitations 2. Vaginal mesh erosion of the sling. We discussed need for removing the mesh erosion and then placing a new sling. She will call her insurance to discuss any concerns she has regarding copays and deductibles and then call us back To schedule surgery. Likely has met her copays for the year 2024 PLAN Follow-up:? Sling revision and new sling, staged separately Counseling: She has a prior sling with mesh. Now with mesh erosion to vagina.? She wants the sling erosion removed. The vaginal mesh needs to be removed.? The goal of the surgery is to improve or resolve any of the following symptoms:? Pelvic pain, dyspareunia, voiding dysfunction,?? Overactive bladder, urge incontinence,? Basically the aim is restore sexual & bladder? function.? Her current symptoms vaginal odor. Likely there would be dyspareunia later on. There is a risk of recurrent Stress incontinence symptoms, and likely need for a repeat sling later. The Major risks of surgery include:? Persistence of symptoms;? need for repeat surgery;? Injury to the urethra / bladder / ureters; Hemorrhage / hematoma / transfusion (typical risk from pelvic surgery is 1-2%, but is higher with mesh excision);? Infection;? Life-threatening event (MA, PE, DVT, CVA).? Told her the plan is for a partial sling excision, remove sling near vagina, but not the remainder of the sling. May need to repair any injury to urethra, bladder, or vagina from the erosion.? May need subsequent treatment for NICOLAS if it recurs. Will need to do this at least 3 mo after sling removal, because there is likely mild chronic infection due to sling erosion, and needs to heal for 3 mo before additional surgery.? Surgical Counselling Note Patient seen for surgical counselling.? She desires surgical repair. Please see? H & P for exam and discussion. Date of procedure:?? December 13, 2024 Preoperative diagnosis:? Vaginal mesh erosion prior sling Stress incontinence Urge incontinence with detrusor instability Planned Procedure:?? Partial sling excision 1. She will have a new sling placed approximately 3 months after this surgery, to ensure that the tissue was heal before placing another sling 2. She has urge incontinence with detrusor instability. Had side effects with oxybutynin XL 10 mg a day with severe dry mouth. Switch to using oxybutynin 2.5 mg twice a day and had less dry mouth but some stomach cramping. Still with urge incontinence with almost every void. Nocturia times 1-2, daytime voids every 2 hours. So more of an urge incontinence issue than an overactive bladder issue. We will try another medication. We will order Detrol LA 2 mg once vickie y. She can take this for the next 10 days, up until 2 days before her surgery, to see what benefit it offers her Postop Meds Tylenol 1000 mg, ?3 times a day? Meloxicam 7.5 mg. She can take 1 or 2 of these pills daily as needed Oycodone 5 mg,? take 1 pill every 4-6 hr as needed, still has some from prior surgery. Doubt she will need more than 1 or 2 of these anyway Colace,? 1 pill BID, for constipation Patient counseled extensively about the Risks, Benefits, and Alternatives to surgery.? She was offered the opportunity to ask any questions, and all questions were answered. ? Surgical Risks include: Bleeding, Hemorrhage, Transfusion, Infection (especially wound or bladder), Injury to adjacent organs (especially bladder, ureter, bowel, blood vessels, nerves), Postop or Chronic Pain, need for Reoperation, and Life-threatening event (especially M.I., CVA, PE, DVT). Procedure Risks include: Failure to Cure condition, Recurrence of condition months or years later, Urinary incontinence, Voiding dysfunction or Urinary Retention with prolonged catheter use, Poor wound healing, Erosions of any mesh or graft used, Dyspareunia, Vaginal scarring or narrowing, Need for additional surgery ( immediate or delayed).? The expected cure and improvement and failure rates were discussed. Patient counseled to avoid the following for 6 weeks after surgery: (1) Impact sports (like running or jumping), walking and stairs OK (2) Lifting over 20# (3) Sexual intercourse No limits after 6 weeks. ? Good exercise tolerance, > 4 Mets. Her current medications were reviewed, and instructions given over which to use and which to discontinue before surgery.? Post-operative care instructions reviewed.? We discussed post-operative pain: Pain should be in the mild-moderate range, but can be moderate-severe for the first few days.?? Prescriptions will typically be given for (1) acetaminophen (Tylenol) and (2) non-steroidal anti-inflammatory drug (NSAID, like Motrin or Naprosyn), use both together, around the clock. Prescription will also be given for a (3) narcotic pain medication. Use the narcotic as needed, as a booster to the Tylenol and NSAID. You might need 0-4 narcotic pills a day typically. The narcotic will only be needed for a few days.?? Gradually use less of the narcotic, but continue the Tylenol and NSAID.? After a few days, the narcotic should no longer be needed, and only the Tylenol and NSAID will be needed.? Warm packs or cold packs can also be used for pain.??Do not drive for as long as you are using the narcotic pain medication? - this should only be a few days.?? Constipation is associated with use of narcotic pain medications, and can be improved with use of a stool softener, or fiber, or a mild laxative.? Zhang Crain MD UroGynecology & Pelvic Reconstructive Surgery [facility] Medical History (Updated 10/04/24 @ 18:32 by Zhang Crain MD) Erosion of vaginal mesh Detrusor instability Rectocele Cystocele, midline Urge incontinence Stress incontinence, female Abnormal uterine bleeding (AUB) Mixed stress and urge urinary incontinence Vision disorder Rosacea (~2000) Eczema Acne Carpal tunnel syndrome (~2009) Ankle pain (~2000) Chicken pox (~1990) Family History Father Hypertension Stroke Mother Diabetes mellitus Rheumatoid arthritis Sleep apnea Family history of thyroid problem Sister Family history of thyroid problem Sister Family history of thyroid problem Grandfather Diabetes mellitus Hyperlipidemia Grandmother Stomach cancer Lung cancer Grandfather Stroke Prostate cancer Grandmother Skin cancer Hypertension Social History marital status: number of children: 4 household members: family and children lives independently: Yes caregiver/support person: No housing: house occupational status: unemployed alcohol intake: never substance use type: does not use Meds Home Medications and Allergies Home Medications ?Medication ?Instructions ?Recorded ?Confirmed ?Type fluticasone propionate 50 1 spray intranasal DAILY #16 grams 04/03/23 10/12/24 Rx mcg/actuation nasal spray,suspension (Flonase Allergy Relief) acetaminophen 500 mg tablet 1,000 mg (2 x 500 mg) PO T ID #30 07/20/24 10/12/24 Rx (Tylenol Extra Strength) tabs docusate sodium 100 mg capsule 100 mg PO BID #30 caps 07/20/24 10/12/24 Rx (Colace) ibuprofen 600 mg tablet 600 mg PO TID postop pain #3 0 tabs 07/20/24 10/12/24 Rx oxybutynin chloride 10 mg 10 mg PO DAILY #60 tabs /05/2510/12/24 Rx tablet,extended release 24 hr oxycodone 5 mg tablet 5 mg PO Q8H PRN pain #15 tab s 07/20/24 10/12/24 Rx meloxicam 7.5 mg tablet 7.5 mg PO DAILY #30 tabs Rx oxybutynin chloride 2.5 mg tablet 2.5 mg PO BID #180 t abs 11/08/24 Rx tolterodine 2 mg capsule,extended 2 mg PO DAILY #30 ca ps 11/30/24 11/30/24 Rx release 24 hr Allergies Allergy/AdvReac Type Severity Reaction Status Date / Time No Known Drug Allergies Allergy Verified 10/12/24 08:32 Assessment & Plan Time-Based Coding :: [TOTAL MINUTES] spent with patient and on the chart (including review of chart, obtaining history, exam, reviewing outside data, placing orders, documenting exam and treatment plan, and counseling patient) on [DATE].
[2024-12-07 10:10] VITALS: BMI 50.2
[2024-12-13] VITALS (10 sets, daily range): BP systolic 120–164; BP diastolic 67–99; PULSE 79–95; RESP 9–17; TEMP 36.3–36.8; O2SAT 93–100; BMI 50.2
--- NOTE | 2024-12-13 | PATH_ITS ---
[facility] Accession Number: [id number] No. of containers..01 Tissue . 01 Material submitted: . SLING - PARTIAL SLING EXCISION . 01 Diagnosis: PARTIAL SLING EXCISION: The specimen is submitted for gross evaluation only. No tissue is submitted for microscopic examination. V 12/16/2024 1824 Local . 01 Electronically signed: . Sheila Weaver MD, Pathologist NPI- [id number] . 01 Gross description: . Received in formalin with two identifiers and partial sling excision are two fragments of blue mesh with a small amount of adherent hemorrhagic and possible fibrous tissue measuring 1.7 x 1.0 x 0.1 cm and 1.5 x 0.9 x 0.1 cm. No sections are submitted. The specimen is for gross only evaluation. ([id number]) /V 12/15/20242022 Local . 01 Pathologist provided ICD-10: T83.711A . 01 CPT . 528023 Specimen Comment: A courtesy copy of this report has been sent to [facility] Pathology Performed at: [address] [address], [place], [place] [id number] MD Ky Bryant MD Phone: [phone]
--- NOTE | 2024-12-13 06:00 | EKG_ITS ---
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
[2024-12-13] MEDS: ACETAMINOPHEN 325 MG TABLET 975 MG PO (12:15)
[2024-12-13] MEDS: GABAPENTIN 300 MG CAPSULE PO (12:15)
[2024-12-13] MEDS: LACTATED RINGERS 1,000 ML 42 ML IV ×2 (12:15→16:38)
--- NOTE | 2024-12-13 14:07 | PM.PREOP ---
Pre-operative Note Interval Note History & Physical reviewed/Exam performed by Physician: Yes Changes to H&P: No
--- NOTE | 2024-12-13 14:34 | SUR.OPER ---
Lithotomy on padded OR bed, head on pillow, arms secured on padded arm boards at <90 degrees abduction. Legs secured in padded yellow fins stirrups.
[2024-12-13] MEDS: LIDOCAINE 1% W/EPI 10ML 20 ML INJ (14:49)
--- NOTE | 2024-12-13 15:37 | PM.GYNOP.1 ---
Operative Date/Time/Diagnoses Date of procedure: 12/13/24 Time of procedure: 14:45 Pre-op diagnosis: Vaginal mesh erosion, prior mid urethral sling Post-op diagnosis: same Procedure & Clinicians Procedure: Procedures Operation Date: 12/13/24 13:45 Actual Procedure Side Surgeon p Partial sling revision Zhang Crain MD Operative Notes Findings: Operative Note Surgeon:? Zhang Crain MD Supervisor Claims:?? Alea Westbrook MD Pre-Op Diagnosis: Vaginal mesh erosion, prior mid urethral sling Post-Op Diagnosis:?? Same Procedure: Partial sling excision, vaginal repair Findings (brief): 1. Exam under anesthesia demonstrates a vaginal mesh erosion, same as noted on the preop exam, it was evident that the wound had split open soon after the prior surgery. The separation of the vaginal mucosa revealed the sling underneath. 2. The size of the mesh erosion was about 1 by 2 cm. It was easily dissected off of the underlying suburethral tissue. And then it was dissected laterally on each side underneath the vaginal epithelium. Once it was found to be approximated it was cut and removed on each side. 3. The vagina mucosa was dissected circumferentially to mobilize the tissue, and then closed, using sutures placed front to back, 8 total sutures of 2-0 Vicryl, interrupted. Date of Surgery:? December 13, 2024 Complications:? none Specimens:? Partial sling excision, left and right portions, sent for gross pathology only Anesthesia Technique:?? General endotracheal Estimated Blood Loss (mls):? 50 Blood Replacement (mls):? none Drains:? None Condition:? Stable Procedure in detail: After consent was confirmed, the patient was taken to the operating room and placed under general anesthesia without incident.? Sequential compression devices were in place and active.? She received perioperative antibiotics.? She was then prepped and draped in the usual sterile fashion after placement in the dorsal lithotomy position using the Moris stirrups.? A Lynch catheter was placed.? Exam under anesthesia demonstrates a vaginal mesh erosion, same as noted on the preop exam, it was evident that the wound had split open soon after the prior surgery. The separation of the vaginal mucosa revealed the sling underneath. The size of the mesh erosion was about 1 by 2 cm. The sling was grasped with a DeBakey and then Metzenbaum scissors were used and the sling was easily dissected off of the underlying suburethral tissue, bilaterally. The sling was then incised in the midline and was dissected laterally on each side, to separate it from the underlying urethral tissue and the overlying vaginal epithelium. The dissection was continued until the sling was found to be well incorporated on each side. At this point the sling was cut and excised and passed off the field. The vaginal wound needed to be repaired. The vagina mucosa was dissected circumferentially, in order to mobilize the vaginal tissue for wound closure. The vagina was then closed, using sutures placed front to back, 8 total sutures of 2-0 Vicryl, interrupted. Sponge, needle and instrument count was correct.? The patient tolerated the procedure well and was taken to the recovery room in stable condition. Zhang Crain MD UroGynecology & Pelvic Reconstructive Surgery [place], [place] Applied: none
--- NOTE | 2024-12-13 16:31 | SUR.PHASEII ---
Rests quietly. No complaints voiced. SR up x 2 with call light in easy reach.
== END 2024-12-13 17:12 | disposition home or self-care (01) ==
PROVIDERS: PCP Family Medicine; Referring Provider Obstetrics & Gynecology Gynecology; Visit Provider Obstetrics & Gynecology Gynecology
PROC: 0TSD0ZZ Reposition Urethra, Open Approach (ICD-10-PCS; CPT 57287; principal; 2024-12-13 13:45)
DX: T83.711A Erosion of implanted vaginal mesh to surrounding organ or tissue, initial encounter (principal); K21.9 Gastro-esophageal reflux disease without esophagitis; N39.46 Mixed incontinence; R35.1 Nocturia; E66.9 Obesity, unspecified; Z68.42 Body mass index [BMI] 45.0-49.9, adult
CPT/HCPCS: 57287; 81025; 93005; 93010; J0330; J0690; J1100; J1885; J2405; J2704; J3010

== ENCOUNTER 2025-03-07 06:32 | Day surgery (SDC) | payer OTHER, SELFPAY ==
[2025-02-28 15:09] VITALS: BMI 51.0
--- NOTE | 2025-03-02 16:33 | P.HPOB_ITS ---
History of Present Illness History of Present Illness Narrative: Cee Gary is a 39 year old female Date of procedure:?? 03-07-2025 Preoperative diagnosis:? Recurrent stress incontinence Prior sling with mesh erosion, removed Planned Procedure:?? mid urethral sling, cystsocopy Postop Meds Tylenol 1000 mg, ?3 times a day? Motrin 400 mg (over age 65 yr) -or- 600 mg (under age 65 yr) ,? 3 times a day Oycodone 5 mg,? take 1 pill every 4-6 hr as needed, # 15? Colace,? 1 pill BID, for constipation CC: Stress Urinary incontinence HPI:??39-year-old female who presents for surgery for recurrent stress incontinence She underwent surgery on August 30, 2024, for stress incontinence and cystocele. Underwent a mid urethral sling and anterior colporrhaphy. The surgery did well in terms of improving her urinary complaints. However she developed a mesh erosion, apparently from nonhealing of the midline incision beneath the urethra. She then underwent surgery on December 13, 2024, she had a partial sling excision to remove the sling mesh erosion. She was seen 6 weeks postoperatively and was healing well and desired to proceed with a repeat sling. At this visit, she mentioned that she was also doing better in terms for urge incontinence, with the use of Detrol LA 2 mg a d. this has corrected nearly all of her OAB, urge UI sx. noct x 0-1 day voids q 3-4 hr urge UI about 0-1 a d, also now smal leaks, used to be large leaks. no SE Below is from her original consult prior to the 1st surgery She reports severe urinary stress incontinence with cough sneeze and sudden movements. Her condition is variable. Sometimes she has minimal symptoms as little as 0 per day, typical is 4 times a week, for which she uses a maxi pad. But whenever she gets an upper respiratory infection, she has severe incontinence, requiring the use of a diaper. Her stress incontinence triggers include sneeze cough laugh strain exercise walking. She also has urgency incontinence. She describes that she leaks when she sits down to void. She has done Kegel's. She has not had surgery. No medications. She also has obesity, 275 lb, 5 ft 3.7 in, BMI 47.6 The significance of the obesity is related to a recent surgery on April 26, 2024. There was a plan for a laparoscopic hysterectomy, anterior and posterior repair, mid urethral sling. However, per the op note, there was significant difficulty with ventilation of the patient while in Trendelenburg position. Likely partly related to the obesity. Ultimately decision was made to do a right ovarian cystectomy to remove an endometrioma and to do a bilateral salpingectomy. The hysterectomy was aborted as was the prolapse repair, as was the sling. Her weight is currently unchanged. She desires to have the surgery for the stress incontinence and the prolapse. We will not plan to do the laparoscopic hysterectomy based on the fact that she did not tolerate laparoscopic insufflation. She reports similar difficulties when she was in the 3rd trimester with breathing difficulties. So the safer course of action will be for vaginal surgery with a sling and a cystocele repair and rectocele repair. The hysterectomy was planned due to heavy menstrual bleeding. However she reports that she can tolerate her menses. She has periods that occur monthly, last 7 days, heavy for 3-5 [address] that way for years, we also discussed using a progesterone coated IUD, or doing endometrial ablation to treat her heavy periods, she declines both for now. She does not have significant prolapse symptoms. No bulge seen. Exam does demonstrate stage II cystocele, stage II rectocele, significantly enlarged genital hiatus. Normally I would recommend observation since the symptoms are low. However, due to her significant urinary incontinence symptoms, and the plan to place a mid urethral sling, the outcome will be much improved by repairing the cystocele at the time of the sling. So she wants to do the cystocele repair. Since we are doing the sling and the cystocele repair, she would also like to have the rectocele repair now. She mentions that her current spouse is 6 ft 5 in tall and does not want the rectocele repair to be too tight for sexual function. She will let me know at the next visit regarding how much smaller she wants the the genital hiatus to be, after surgery. Denies hematuria, bladder infections, tobacco use. Does have a history of renal stone 2 times. One remote, 1 in the last couple of years. prior hyst -??? 0 ? -? 4 c-sec? -?? 0 ? Pelvic Floor Review of Systems: (HPI) ?Stress urinary incontinence (NICOLAS):??0 to many per day ? Urge Incontinence (Urge UI):??0-1 per day ? She wears 1-2 maxi pads a day. OAB sx:? noct x 0-1 day voids q 3-4 hr urge UI about 0-1 a d, also now smal leaks, used to be large leaks. Taking Detrol LA 2 mg Diet / Fluids: ? Fluid restriction:??No ? Excessive fluids:??No Pain symptoms:? Painful bladder:??No ? Dysuria:??No ? Dyspareunia:??No ? Dysmenorrhea:? No UTI?s, recurrent:? No Hematuria:? No Kidney Stones:??Yes Tobacco use:? No ? Pelvic Organ Prolapse (POP) symptoms:? Bulge:?No? Pressure and /or? Heaviness:?No? Splint for defecation or voiding:? No? Voiding dysfunction: ? Abnormal stream:? No ? Strain to void:?improved ? Incomplete emptying:??Sometime ? Retention:??No Bowel Function: ? Constipation:??No ? Strain to defecate:??No ? Fiber:??No ? Laxatives:??No Fecal Incontinence:? Liquid stool:??No ? Solid stool:??No Sexually active:??Yes? Incontinence with sex:??Yes ROS Constitutional, CV, Endo, Musc-skel, Eyes, Cancer, Skin, Breast, GI, Heme/Lymph, Psych, Urinary, Neuro, Used Equipment Sales Representative, Resp, Sexual:??? Pertinent positives listed above, all other systems reviewed and negative. ? PFSH Medical History Rectocele Cystocele, midline Urge incontinence Stress incontinence, female Abnormal uterine bleeding (AUB) Mixed stress and urge urinary incontinence Vision disorder Rosacea (~2000) Eczema Acne Carpal tunnel syndrome (~2009) Ankle pain (~2000) Chicken pox (~1990) Allergies No Known Drug Allergies Allergy (Verified 01/25/25 14:24) Medications fluticasone propionate 50 mcg/actuation nasal spray,suspension (Flonase Allergy Relief) 1 spray intranasal DAILY #16 grams 04/03/23 [Rx Confirmed 01/25/25] acetaminophen 500 mg tablet (Tylenol Extra Strength) 1,000 mg (2 x 500 mg) PO TID #30 tabs 07/20/24 [Rx Confirmed 01/25/25] docusate sodium 100 mg capsule (Colace) 100 mg PO BID #30 caps 07/20/24 [Rx Confirmed 01/25/25] ibuprofen 600 mg tablet 600 mg PO TID postop pain #30 tabs 07/20/24 [Rx Confirmed 01/25/25] oxycodone 5 mg tablet 5 mg PO Q8H PRN pain #15 tabs 07/20/24 [Rx Confirmed ] tolterodine 2 mg capsule,extended release 24 hr 2 mg PO DAILY #30 caps 11/30/24 [Rx Confirmed 01/25/25] meloxicam 7.5 mg tablet 7.5 mg PO DAILY #30 tabs 12/29/24 [Rx Confirmed 01/25/25] Family History Father Hypertension StrokeMother Diabetes mellitus Rheumatoid arthritis Sleep apnea Family history of thyroid problemSister Family history of thyroid problemSister Family history of thyroid problemGrandfather Diabetes mellitus HyperlipidemiaGrandmother Stomach cancer Lung cancerGrandfather Stroke Prostate cancerGrandmother Skin cancer Hypertension Social History marital status: number of children: 4 household members: family and children lives independently: Yes caregiver/support person: No housing: house occupational status: unemployed Tobacco & Substance Use Smoking Status: Never smoker alcohol intake: never substance use type: does not use Exam Vitals 01/25/2514:26 Height 5 ft 3.5 in Weight 290 lb BMI 50.5 BP 137/91 H Blood Pressure Location Rt radial Position Sitting Pulse 81 Pulse Source Monitor Pulse Oximetry (%) 99 Oxygen Delivery Method room air General: healthy, alert, coherent, no acute distress, cooperative, nontoxic Lungs: Breathing unlabored Abdomen: soft, no mass, non-distended, no hernia, non-tender Skin: Scars on Abd: Laparoscopy Vulva: Normal labia majora, labia minora, and clitoris, non-tender Gaping introitus, admits 3 fingers, obvious prior obstetric tear Urethra meatus: normal, no discharge Perineum: Normal, non-tender Urethra: No mass, non-tender Bladder: no mass, non-tender Vagina: No lesions, no discharge, atrophy, non-tender, no mesh erosion No significant cystocele stage II rectocele, good uterine support. Levators: Non-tender, Cervix: Normal No lesions, no discharge, non-tender Uterus: normal size, non-tender Bimanual: no mass, no adnexal mass, non-tender Anus: No lesion, non-tender, no hemorrhoid Empty Cough Stress test: Neg PVR: 10 mL by catheter Urethral angle hypermobile: + Pelvic Organ Prolapse: POP-Q Exam: Aa: 0 Ba: 0 Ap: -1 Bp: -1 C: -7 D: -10 TVL: 10.5 GH: 4.5 PB: 3 Introitus size: 3-4 fingerbreadths Cystocele stage: 2 Rectocele stage: 2 Uterine/Vault Prolapse Stage: 0-1 Assessment & Plan (1) Stress incontinence, female: Recommendations: ? Patient counseled regarding above conditions.? Educational materials given to patient. ? 1.???Stress Urinary Incontinence with urethral hypermobility :? This diagnosis was discussed with the patient. The etiology was explained. Treatment options were discussed including expectant management, pelvic floor exercises, pessary trial, and surgical intervention (mid-urethral sling, Simmons urethropexy, P-V sling, Mariya urethral plication, urethral bulking injection).? Risks and benefits of surgery were briefly outlined. she is a candidate for a Midurethral Sling as treatment of her stress incontinence. Success rate of being dry from stress incontinence is about 80- 85%; another 10-15% of patients are markedly improved but not cured;? 1-2% will fail, and 1-2% will need the sling cut because it is too tight.? The risk of temporary urinary retention requeiring temporary catheterization is about 15- 20%; risk of urinary retention requiring sling release procedure is about 1-2%, as noted above.? We discussed the small 1-3% of mesh erosion as well as the small risk of de sunil urgency.? This procedure is not designed to treat Urge Incontinence symptoms; however, 30-50% of patients with overactive bladder/ urgency urinary incontinence will have improvement in these symptoms, in 30% these symptoms will stay the same, and in 20-30% these symptoms will worsen. Surgical Counselling Note Patient seen for surgical counselling.? She desires surgical repair. Please see? H & P for exam and discussion. Date of procedure:?? 03-07-2025 Preoperative diagnosis:? stress incontinence Planned Procedure:?? mid urethral sling, cystsocopy Postop Meds Tylenol 1000 mg, ?3 times a day? Motrin 400 mg (over age 65 yr) -or- 600 mg (under age 65 yr) ,? 3 times a day Oycodone 5 mg,? take 1 pill every 4-6 hr as needed, # 15? Colace,? 1 pill BID, for constipation Patient counseled extensively about the Risks, Benefits, and Alternatives to surgery.? She was offered the opportunity to ask any questions, and all questions were answered. ? Surgical Risks include: Bleeding, Hemorrhage, Transfusion, Infection (especially wound or bladder), Injury to adjacent organs (especially bladder, ureter, bowel, blood vessels, nerves), Postop or Chronic Pain, need for Reoperation, and Life-threatening event (especially M.I., CVA, PE, DVT). Procedure Risks include: Failure to Cure condition, Recurrence of condition months or years later, Urinary incontinence, Voiding dysfunction or Urinary Retention with prolonged catheter use, Poor wound healing, Erosions of any mesh or graft used, Dyspareunia, Vaginal scarring or narrowing, Need for additional surgery (immediate or delayed).? The expected cure and improvement and failure rates were discussed. Patient counseled to avoid the following for 6 weeks after surgery: (1) Impact sports (like running or jumping), walking and stairs OK (2) Lifting over 20# (3) Sexual intercourse No limits after 6 weeks. ? Good exercise tolerance, > 4 Mets. Her current medications were reviewed, and instructions given over which to use and which to discontinue before surgery.? Post-operative care instructions reviewed.? We discussed post-operative pain: Pain should be in the mild-moderate range, but can be moderate-severe for the first few days.?? Prescriptions will typically be given for (1) acetaminophen (Tylenol) and (2) non-steroidal anti-inflammatory drug (NSAID, like Motrin or Naprosyn), use both together, around the clock. Prescription will also be given for a (3) narcotic pain medication. Use the narcotic as needed, as a booster to the Tylenol and NSAID. You might need 0-4 narcotic pills a day typically. The narcotic will only be needed for a few days.?? Gradually use less of the narcotic, but continue the Tylenol and NSAID.? After a few days, the narcotic should no longer be needed, and only the Tylenol and NSAID will be needed.? Warm packs or cold packs can also be used for pain.??Do not drive for as long as you are using the narcotic pain medication? - this should only be a few days.?? Constipation is associated with use of narcotic pain medications, and can be improved with use of a stool softener, or fiber, or a mild laxative.? If you are sent home from the hospital with a Lynch Catheter in place:? please call the office on the day after surgery We will usually remove the catheter 2-4 days after surgery: a. You will perform an at home Lynch catheter removal -or- b. You will come in to the office for a voiding trial, (For some unusual surgeries, we might leave the catheter in for up to 2 weeks, and then remove it.) Instructions for at home Lynch catheter removal..... For at-home Lynch catheter removal, this can be done on postop day 2 or 3 or 4, depending on various factors. 1. At 6 or 7 a.m., have the patient cut the Lynch catheter with scissors, while standing in a shower or bath tub. a. Cut the catheter right in the middle of the tubing, about 6 inches from the body. b. The sterile water that is inside the Lynch balloon will leak all over the floor of the shower or bath tub. This is expected. c. The catheter will either fall out of the urethra, or just gently pull on it and it will come out. 2. Now, the bladder will gradually fill up over the next few hours. 3. Go ahead and empty the bladder when you feel an urge to void. Please note how strong the urine stream is. a. If the urine stream is normal or close to normal, then everything is good to go. b. If the urine stream is slow or you can not void, then return to the clinic in the afternoon. We will place another Lynch catheter. We will repeat the voiding trial in 3-4 days. All of her questions were answered Zhang Crain MD UroGynecology & Pelvic Reconstructive Surgery [facility] Medical History (Updated 10/04/24 @ 18:32 by Zhang Crain MD) Erosion of vaginal mesh Detrusor instability Rectocele Cystocele, midline Urge incontinence Stress incontinence, female Abnormal uterine bleeding (AUB) Mixed stress and urge urinary incontinence Vision disorder Rosacea (~2000) Eczema Acne Carpal tunnel syndrome (~2009) Ankle pain (~2000) Chicken pox (~1990) Surgical History (Updated 02/28/25 @ 15:06 by Karina Licona RN) S/P ovarian cystectomy (04/26/24) S/P urological surgery (12/13/24) Hx of tonsillectomy (2017) History of carpal tunnel release (2019) History of gynecologic surgery (08/30/24) Family History Father Hypertension Stroke Mother Diabetes mellitus Rheumatoid arthritis Sleep apnea Family history of thyroid problem Sister Family history of thyroid problem Sister Family history of thyroid problem Grandfather Diabetes mellitus Hyperlipidemia Grandmother Stomach cancer Lung cancer Grandfather Stroke Prostate cancer Grandmother Skin cancer Hypertension Social History marital status: number of children: 4 household members: family and children lives independently: Yes caregiver/support person: No housing: house occupational status: unemployed Smoking Status: Never smoker alcohol intake: never substance use type: does not use Meds Home Medications and Allergies Home Medications ?Medication ?Instructions ?Recorded ?Confirmed ?Type fluticasone propionate 50 1 spray intranasal DAILY #16 grams 04/03/23 01/25/25 Rx mcg/actuation nasal spray,suspension (Flonase Allergy Relief) acetaminophen 500 mg tablet 1,000 mg (2 x 500 mg) PO T ID #30 07/20/24 01/25/25 Rx (Tylenol Extra Strength) tabs docusate sodium 100 mg capsule 100 mg PO BID #30 caps 07/20/24 01/25/25 Rx (Colace) ibuprofen 600 mg tablet 600 mg PO TID postop pain #3 0 tabs 07/20/24 01/25/25 Rx oxycodone 5 mg tablet 5 mg PO Q8H PRN pain #15 tab s 07/20/24 01/25/25 Rx tolterodine 2 mg capsule,extended 2 mg PO DAILY #30 ca ps 11/30/24 01/25/25 Rx release 24 hr meloxicam 7.5 mg tablet 7.5 mg PO DAILY #30 tabs 04/2401/25/25 Rx Allergies Allergy/AdvReac Type Severity Reaction Status Date / Time No Known Drug Allergies Allergy Verified 01/25/25 14:24 Assessment & Plan Time-Based Coding :: [TOTAL MINUTES] spent with patient and on the chart (including review of chart, obtaining history, exam, reviewing outside data, placing orders, documenting exam and treatment plan, and counseling patient) on [DATE].
[2025-03-07 06:55] VITALS: BP 126/83; PULSE 84; RESP 16; TEMP 36.4; O2SAT 97
--- NOTE | 2025-03-07 07:26 | PM.PREOP ---
Pre-operative Note Interval Note History & Physical reviewed/Exam performed by Physician: Yes Changes to H&P: No
[2025-03-07] MEDS: ACETAMINOPHEN 325 MG TABLET 975 MG PO (07:36)
[2025-03-07] MEDS: LACTATED RINGERS 1,000 ML 42 ML IV (07:36)
--- NOTE | 2025-03-07 08:14 | SUR.OPER ---
Lithotomy on padded OR bed, head on pillow, arms secured on padded arm boards at <90 degrees abduction. Legs secured in padded yellow fins stirrups.
[2025-03-07] MEDS: LIDOCAINE 1% W/EPI 10ML 10 ML INJ (08:23)
--- NOTE | 2025-03-07 09:04 | PM.GYNOP.1 ---
Operative Date/Time/Diagnoses Date of procedure: 03/07/25 Time of procedure: 08:30 Pre-op diagnosis: stress incontinence Post-op diagnosis: same Procedure & Clinicians Procedure: Procedures Operation Date: 03/07/25 07:45 Actual Procedure Side Surgeon p Mid urethral sling placement, cystoscopy Not Applicable Zhang Crain MD Operative Notes Findings: Operative Note Surgeon:? Zhang Crain MD Track Car Operator: None Pre-Op Diagnosis: Stress incontinence, . (prior mid urethral sling then with mesh erosion then with partial sling excision) Post-Op Diagnosis: Same Procedure: Mid urethral sling, cystoscopy Findings (brief): 1. Exam under anesthesia demonstrates scarring with thin vaginal mucosa at the area of the prior mesh erosion, approximately 10 x 20 mm in the midline. The concern would be that the tissue was too thin and that she could get another mesh erosion. On dissection, this thin area demonstrated enough thickness of tissue to close over the wound without being so thin that a mesh erosion would likely occur, so sling placed. 2. TVT sling placed at the mid urethra, tension-free 3. Cystoscopy with normal bladder, normal urethra, no mesh erosion from prior sling, normal ureters, no trocar injury 4. The vaginal wound was closed with interrupted sutures of 2-0 Vicryl, rather than a running suture of 2-0 Vicryl, 2 hopefully decrease the risk of another wound separation leading to a mesh erosion, like what occurred on the prior surgery Date of Surgery:? March 07, 2025 Complications:? None Specimens:? None Anesthesia Technique: General endotracheal Estimated Blood Loss (mls):? 20 Blood Replacement (mls):? None Drains:? Lynch Condition:? Stable Procedure in detail: After consent was confirmed, the patient was taken to the operating room and placed under general anesthesia without incident.? Sequential compression devices were in place and active.? She received perioperative antibiotics.? She was then prepped and draped in the usual sterile fashion after placement in the dorsal lithotomy position using the Moris stirrups.? A Lynch catheter was placed.? Exam under anesthesia as noted above. With the Lynch catheter in place, the anterior vaginal mucosa beneath and lateral to the urethra was injected with 20 cc of? 0.5% lidocaine / epinephrine 1:200,000.? A 3 cm midline incision was made at the level of the midurethra with a scapel. Metzenbaum scissors were used to dissect the vagina from the urethra and then create tunnels beneath the vaginal mucosa up toward the pubic bone on each side.? A marking pen was used to royer the skin just above the pubic bone and 2 cm from the midline bilaterally, and two small 8-10 mm incisions were made on the suprapubic skin.? The trocar was passed from the right vaginal tunnel, behind the pubic bone, to the right suprapubic incision, and this was repeated on the left side.? The Lynch catheter was removed, and cystoscopy was performed with a 70 degree lens. There was no trocar injury, and the bladder, ureters, and urethra were normal.? The Lynch catheter was reinserted.? The sling was pulled into position in a tension-free manner, and a Mariya clamp was easily passed between the sling and the urethra.? The plastic sheaths were removed to anchor the sling, and tension was checked again. The ends of the sling were trimmed just below the skin, and the skin incisions were cleaned and closed with dermabond. The vaginal incision was closed with interrupted sutures of 2-0 Vicryl Sponge, needle and instrument count was correct.? The patient tolerated the procedure well and was taken to the recovery room in stable condition. Zhang Crain MD UroGynecology & Pelvic Reconstructive Surgery [place], [place] Applied: implant(s) (TVT mid urethral sling)
[2025-03-07 09:15] VITALS: BP 106/57; PULSE 91; RESP 12; TEMP 36.1; O2SAT 94
[2025-03-07 09:20] VITALS: BP 115/64; PULSE 82; RESP 20; TEMP 36.1; O2SAT 99
[2025-03-07 09:25] VITALS: BP 124/72; PULSE 80; RESP 20; TEMP 36.2; O2SAT 98
[2025-03-07 09:35] VITALS: BP 125/60; PULSE 88; RESP 20; TEMP 36.2; O2SAT 99
--- NOTE | 2025-03-07 10:07 | SUR.PHASEII ---
voiding trial- 300 ml sterile water instilled into bladder, samaniego removed. Patient voided 400ml bloody urine. Patient is on her menses.
== END 2025-03-07 10:29 | disposition home or self-care (01) ==
PROVIDERS: PCP Family Medicine; Referring Provider Family Medicine; Visit Provider Obstetrics & Gynecology Gynecology
PROC: 0TSD0ZZ Reposition Urethra, Open Approach (ICD-10-PCS; CPT 57288; principal; 2025-03-07 07:45)
DX: N39.3 Stress incontinence (female) (male) (principal); E66.9 Obesity, unspecified; Z68.42 Body mass index [BMI] 45.0-49.9, adult
CPT/HCPCS: 57288; 81025; C1771; J0687; J0689; J1100; J1885; J2250; J2405; J2704; J3010; J7120